=== PATIENT | female | born 1985 | race Caucasian/White ===

== ENCOUNTER 2020-04-24 01:35 | Emergency (ER) | payer BC | END 2020-04-24 03:20 | disposition left against medical advice (07) | LOC: ER1 01:35 | DX: R20.2 Paresthesia of skin (principal); R42 Dizziness and giddiness; Z53.21 Procedure and treatment not carried out due to patient leaving prior to being seen by health care provider ==

== ENCOUNTER 2020-04-24 12:33 | Emergency (ER) | payer BC ==
[2020-04-24 13:42] LABS: HEMOGLOBIN 12.2 gm/dl (12.3-15.3); RED BLOOD COUNT 3.99 M/UL (4.00-5.10); WHITE BLOOD COUNT 5.5 K/UL (4.5-11.0)
[2020-04-24 14:07] LABS: BUN/CREATININE RATIO 12 (0-10)
== END 2020-04-24 16:04 | disposition home or self-care (01) ==
LOC: ER1 12:33
PROVIDERS: Family Medicine
DX: R42 Dizziness and giddiness (principal); R55 Syncope and collapse; Z88.2 Allergy status to sulfonamides
CPT/HCPCS: 80053; 81001; 84439; 84443; 84703; 85025; 93005; 99284; J7030

== ENCOUNTER 2020-09-11 11:44 | Emergency (ER) | payer BC ==
[2020-09-11 13:01] LABS: HEMOGLOBIN 13.3 gm/dl (12.3-15.3); RED BLOOD COUNT 4.15 M/UL (4.00-5.10); WHITE BLOOD COUNT 9.3 K/UL (4.5-11.0)
[2020-09-11 13:20] LABS: BUN/CREATININE RATIO 10 (0-10)
[2020-09-11] MEDS ORDERED: DOXYCYCLINE HY100 M2 PO (15:04)
[2020-09-11] MEDS ORDERED: NAPROSYN500 MG PO (15:04)
== END 2020-09-11 15:11 | disposition home or self-care (01) ==
LOC: ER1 11:44
PROVIDERS: Physician Assistant
DX: S93.601A Unspecified sprain of right foot, initial encounter (principal); S93.401A Sprain of unspecified ligament of right ankle, initial encounter; L03.115 Cellulitis of right lower limb; Z79.899 Other long term (current) drug therapy; F17.200 Nicotine dependence, unspecified, uncomplicated; Z88.1 Allergy status to other antibiotic agents; X58.XXXA Exposure to other specified factors, initial encounter
CPT/HCPCS: 73610; 73630; 80048; 84550; 85025; 85379; 99283

== ENCOUNTER 2021-09-07 20:34 | Emergency (ER) | payer SELFPAY ==
[~2021-09-07 20:34] MED LIST: BENTYL 20MG TAB20 MG PO; DOXYCYCLINE HY100 M2 PO; FLORASTOR250 MG PO; NAPROSYN500 MG PO; ZOFRAN4 MG PO
[2021-09-07 21:01] LABS: HEMOGLOBIN 13.4 gm/dl (12.3-15.3); RED BLOOD COUNT 4.21 M/UL (4.00-5.10); WHITE BLOOD COUNT 10.2 K/UL (4.5-11.0)
[2021-09-07 21:24] LABS: BUN/CREATININE RATIO 14 (0-10)
== END 2021-09-07 22:16 | disposition home or self-care (01) ==
LOC: ER1 20:34
PROVIDERS: Emergency Medicine
DX: R55 Syncope and collapse (principal)
CPT/HCPCS: 80053; 81001; 82550; 82553; 84484; 84703; 85025; 86140; 93005; 99284

== ENCOUNTER 2021-12-14 20:58 | Emergency (ER) | payer BC ==
[2021-12-14 21:28] LABS: HEMOGLOBIN 13.2 gm/dl (12.3-15.3); RED BLOOD COUNT 4.02 M/UL (4.00-5.10); WHITE BLOOD COUNT 9.5 K/UL (4.5-11.0)
[2021-12-14 21:53] LABS: BUN/CREATININE RATIO 8 (0-10)
[2021-12-15] MEDS ORDERED: MACROBID 100 M100 MG PO (00:23)
== END 2021-12-15 00:33 | disposition home or self-care (01) ==
LOC: ER1 20:58
PROVIDERS: Student in an Organized Health Care Education/Training Program
DX: E87.6 Hypokalemia (principal); N39.0 Urinary tract infection, site not specified; R07.9 Chest pain, unspecified; F17.200 Nicotine dependence, unspecified, uncomplicated
CPT/HCPCS: 71045; 80053; 81001; 82550; 82553; 84484; 85025; 87077; 87086; 87186; 93005; 99284